=== PATIENT | female | born 1950 | race American Indian/Alaskan Native ===

== ENCOUNTER 2017-06-07 23:05 | Inpatient (IN) | payer MEDICARE, MEDICAID ==
[2017-06-07 23:06] VITALS: BMI 30.4
[2017-06-08] MEDS ORDERED: Nitroglycerin 2% Ointment Foilpak UD TOP STA (01:15)
[2017-06-08 01:19] LABS: BASO % 0.7 % (0.0-2.0); EOS # 0.2 K/uL (0.0-0.7); EOS % 2.8 % (0.0-4.0); HEMOGLOBIN 10.8 g/dL (12.0-16.0); LYMPH # 1.2 K/uL (1.0-4.3); MEAN CELL VOLUME 81.1 fl (81.0-99.0); MEAN CORPUSCULAR HEMOGLOBIN 25.9 pg (27.0-31.0); MEAN CORPUSCULAR HGB CONC 31.9 g/dL (33.0-37.0); MEAN PLATELET VOLUME 9.4 fl (7.2-11.7); MONO # 0.6 K/uL (0.0-0.8); MONO % 8.6 % (0.0-10.0); NEUT # 4.7 K/uL (1.8-7.0); NEUT % 69.9 % (50.0-75.0); NRBC % 0.1 % (0.0-0.0); RBC 4.17 Mil/uL (3.80-5.20); RED CELL DISTRIBUTION WIDTH 19.2 % (11.5-14.5); WHITE BLOOD COUNT 6.7 K/uL (4.8-10.8)
[2017-06-08] MEDS ORDERED: Nitroglycerin 2% Ointment Foilpak UD TOP ONE (01:29)
[2017-06-08 01:54] LABS: ALB/GLOB RATIO 1.1 (1.0-2.1); ALBUMIN 4.4 g/dL (3.5-5.0); ALT/SGPT 12 U/L (9-52); AST/SGOT 53 U/L (14-36); B-TYPE NATRIURETIC PEPTIDE 280 pg/ml (0-900); BLOOD UREA NITROGEN 19 mg/dl (7-17); CALCIUM 9.2 mg/dL (8.4-10.2); GFR AFRICAN-AMERICAN > 60; GFR NON-AFRICAN AMERICAN > 60
[2017-06-08 02:20] LABS: INR 1.1 (0.9-1.2); PARTIAL THROMBOPLASTIN TIME 27.6 Seconds (25.6-37.1); PROTHROMBIN TIME 11.7 Seconds (9.8-13.1)
--- NOTE | 2017-06-08 02:28 | ED PDOC ---
HPI: Chest Pain Time Seen by Provider: 06/08/17 00:13 Chief Complaint (Nursing): Chest Pain Chief Complaint (Provider): cough, shortness of breath, and chest pain History Per: Patient History/Exam Limitations: no limitations Onset/Duration Of Symptoms: Days (1x) Current Symptoms Are (Timing): Still Present Associated Symptoms: denies: Nausea, Diaphoresis Additional Complaint(s): Nohemi Garcia, a 66 year old female with a past medical history of hypertension and valve heart disease presents to the ED complaining of cough, shortness of breath, and chest pain onset two hours prior to arrival. She reports of associated symptoms of cough with white phlegm and one episode of slurred speech in the afternoon. Denies of nausea, diaphoresis, shortness of breath, fever, or diarrhea. PMD: Provider TBD Past Medical History Reviewed: Historical Data, Nursing Documentation, Vital Signs Vital Signs: Last Vital Signs Temp 97.4 F L 06/08/17 05:44 Pulse 98 H 06/08/17 05:44 Resp 18 06/08/17 05:44 BP 161/83 H 06/08/17 05:44 Pulse Ox 100 06/08/17 05:44 - Medical History PMH: CAD, Cardia Arrhythmia, HTN - Family History Family History: States: Unknown Family Hx - Social History Current smoker - smoking cessation education provided: No Alcohol: None Drugs: Denies - Immunization History Hx Tetanus Toxoid Vaccination: No Hx Influenza Vaccination: No Hx Pneumococcal Vaccination: No - Home Medications Home Medications: Ambulatory Orders Medication Instructions Recorded Lisinopril [Zestril] 10 mg PO DAILY 06/08/17 Metoprolol Tartrate [Lopressor] 50 mg PO DAILY 06/08/17 Warfarin [Coumadin] 5 mg PO DAILY 06/08/17 - Allergies Allergies/Adverse Reactions: Allergies Allergy/AdvReac Type Severity Reaction Status Date / Time No Known Allergies Allergy Verified 06/08/17 02:13 Review of Systems ROS Statement: Except As Marked, All Systems Reviewed And Found Negative Constitutional: Negative for: Fever, Other (diaphoresis) Cardiovascular: Positive for: Chest Pain Respiratory: Positive for: Cough (white phelgm ). Negative for: Shortness of Breath Gastrointestinal: Negative for: Nausea, Diarrhea Neurological: Positive for: Change in Speech (one episode; resolved ) Physical Exam - Reviewed Nursing Documentation Reviewed: Yes Vital Signs Reviewed: Yes - Physical Exam Appears: Positive for: Well, Non-toxic, No Acute Distress Head Exam: Positive for: ATRAUMATIC, NORMAL INSPECTION, NORMOCEPHALIC Skin: Positive for: Normal Color, Warm, Dry Eye Exam: Positive for: EOMI, Normal appearance, PERRL ENT: Positive for: Normal ENT Inspection Neck: Positive for: Normal, Painless ROM, Supple. Negative for: Decreased ROM Cardiovascular/Chest: Positive for: Regular Rate, Rhythm, Other (click) Respiratory: Positive for: Rales (bilateral diffuse) Gastrointestinal/Abdominal: Positive for: Normal Exam, Bowel Sounds, Soft. Negative for: Tenderness Back: Positive for: Normal Inspection. Negative for: L CVA Tenderness, R CVA Tenderness Extremity: Positive for: Normal ROM. Negative for: Tenderness, Pedal Edema, Deformity Neurologic/Psych: Positive for: Alert, Oriented (x3) - Laboratory Results Result Diagrams: 06/08/17 00:35 06/08/17 02:24 - ECG O2 Sat by Pulse Oximetry: 97 (RA) Pulse Ox Interpretation: Normal Medical Decision Making Medical Decision Making: Time: 00:19 Initial Impression: 66 y/o female with heart disease Initial Plan: --EKG --B-type Natriuretic Peptide --CMP --Troponin I --CBC --PTT --Prothrombin Time [COAG] --Chest X-ray --Lasix 40mg --Nitroglycerin 2% --Blood Culture --Influenza A B --Reevaluation Chest X-ray presented cardiomegaly and vascular congestion. Admitted as observation patient for CHF and chest pain. Documented by Camila Santos acting as a scribe for Timothy Gross MD. All medical record entries made by the Scribe were at my direction and personally dictated by me. I have reviewed the chart and agree that the record accurately reflects my personal performance of the history, physical exam, medical decision making, and the department course for this patient. I have also personally directed, reviewed, and agree with the discharge instructions and disposition. Disposition - Clinical Impression Clinical Impression: Congestive heart failure, Chest pain - Disposition Disposition Time: 01:15 Condition: GUARDED - Pt Status Changed To: Hospital Disposition Of: Observation
--- NOTE | 2017-06-08 07:06 | CP.PCM.HP ---
History of Present Illness - History of Present Illness History of Present Illness: A 66 year old female with a past medical history of hypertension and valve heart disease was admitted due to cough, shortness of breath, and chest pain onset two hours prior to arrival to ER. She was driving at around 7:30 PM and suddenly she could not breathe. She had to park her car. She reports of associated symptoms of cough with white phlegm and one episode of slurred speech in the afternoon. Denies of nausea, diaphoresis, shortness of breath, fever, or diarrhea. Present on Admission - Present on Admission Any Indicators Present on Admission: No History of DVT/PE: No History of Uncontrolled Diabetes: No Urinary Catheter: No Decubitus Ulcer Present: No Review of Systems - Constitutional Constitutional: absent: Anorexia, Chills - Cardiovascular Cardiovascular: Chest Pain - Respiratory Respiratory: Cough - Neurological Neurological: Abnormal Speech (one episode, resolved soon) Past Patient History - Past Medical History & Family History Past Medical History?: Yes - Past Social History Alcohol: None Drugs: Denies - CARDIAC Hx Cardia Arrhythmia: Yes Hx Hypertension: Yes - PULMONARY Hx Respiratory Disorders: No - NEUROLOGICAL Hx Neurological Disorder: No - HEENT Hx HEENT Problems: No - RENAL Hx Chronic Kidney Disease: No - ENDOCRINE/METABOLIC Hx Endocrine Disorders: No - HEMATOLOGICAL/ONCOLOGICAL Hx Blood Disorders: No Hx AIDS: No Hx Human Immunodeficiency Virus (HIV): No - INTEGUMENTARY Hx Dermatological Problems: No - MUSCULOSKELETAL/RHEUMATOLOGICAL Hx Musculoskeletal Disorders: No Hx Falls: No - GASTROINTESTINAL Hx Gastrointestinal Disorders: No - GENITOURINARY/GYNECOLOGICAL Hx Genitourinary Disorders: No - PSYCHIATRIC Hx Psychophysiologic Disorder: No Hx Substance Use: No - SURGICAL HISTORY Hx Surgeries: Yes Hx Open Heart Surgery: Yes - ANESTHESIA Hx Anesthesia: Yes Hx Anesthesia Reactions: No Hx Malignant Hyperthermia: No Has any member of the family had a problem w/ anesthesia?: No Meds Allergies/Adverse Reactions: Allergies Allergy/AdvReac Type Severity Reaction Status Date / Time No Known Allergies Allergy Verified 06/08/17 02:13 Physical Exam - Constitutional Appears: No Acute Distress - Neck Exam Neck exam: Positive for: Full Rom - Respiratory Exam Respiratory Exam: Rales (diffuse), NORMAL BREATHING PATTERN - Cardiovascular Exam Cardiovascular Exam: REGULAR RHYTHM. absent: Systolic Murmur - GI/Abdominal Exam GI & Abdominal Exam: Normal Bowel Sounds, Soft. absent: Tenderness - Extremities Exam Extremities exam: Positive for: normal inspection. Negative for: calf tenderness, pedal edema Results - Vital Signs Recent Vital Signs: Last Vital Signs Temp 97.4 F L 06/08/17 05:44 Pulse 98 H 06/08/17 05:44 Resp 18 06/08/17 05:44 BP 161/83 H 06/08/17 05:44 Pulse Ox 97 06/08/17 06:55 - Labs Result Diagrams: 06/08/17 00:35 06/08/17 02:24 Labs: Laboratory Results - last 24 hr 06/08/17 06/08/17 06/08/17 00:35 00:35 00:35 WBC 6.7 RBC 4.17 Hgb 10.8 L Hct 33.8 L MCV 81.1 MCH 25.9 L MCHC 31.9 L RDW 19.2 H Plt Count 189 MPV 9.4 Neut % (Auto) 69.9 Lymph % (Auto) 18.0 L [place] % (Auto) 8.6 Eos % (Auto) 2.8 Baso % (Auto) 0.7 Neut # (Auto) 4.7 Lymph # (Auto) 1.2 [place] # (Auto) 0.6 Eos # (Auto) 0.2 Baso # (Auto) 0.0 PT INR APTT Sodium 140 Potassium 6.5 H* Chloride 106 Carbon Dioxide 23 Anion Gap 18 BUN 19 H Creatinine 0.8 Est GFR ( Amer) > 60 Est GFR (Non-Af Amer) > 60 Random Glucose 91 Calcium 9.2 Total Bilirubin 2.1 H AST 53 H ALT 12 Alkaline Phosphatase 120 Troponin I 0.0130 NT-Pro-B Natriuret Pep 280 Total Protein 8.6 H Albumin 4.4 Globulin 4.1 H Albumin/Globulin Ratio 1.1 Influenza Typ A,B (EIA) Negative for flu a/b 06/08/17 06/08/17 01:50 02:24 WBC RBC Hgb Hct MCV MCH MCHC RDW Plt Count MPV Neut % (Auto) Lymph % (Auto) [place] % (Auto) Eos % (Auto) Baso % (Auto) Neut # (Auto) Lymph # (Auto) [place] # (Auto) Eos # (Auto) Baso # (Auto) PT 11.7 INR 1.1 APTT 27.6 Sodium Potassium 4.5 Chloride Carbon Dioxide Anion Gap BUN Creatinine Est GFR ( Amer) Est GFR (Non-Af Amer) Random Glucose Calcium Total Bilirubin AST ALT Alkaline Phosphatase Troponin I NT-Pro-B Natriuret Pep Total Protein Albumin Globulin Albumin/Globulin Ratio Influenza Typ A,B (EIA) Assessment & Plan - Assessment and Plan (Free Text) Assessment: a 66 year old female who came with chest pain, SOB R/O ACS history of CHF, HTN, A-fib EKG- sinus tachy with 1st degree AV block chest X-ray - cardiomegaly. Plan: troponin cardiology consult continue iv lasix respiratory treatment DVT prophylaxis - Date & Time Date: 06/08/17 Time: 07:12
[2017-06-08 09:15] LABS: HEMOGLOBIN 10.8 g/dL (12.0-16.0); MEAN CELL VOLUME 79.6 fl (81.0-99.0); MEAN CORPUSCULAR HEMOGLOBIN 25.9 pg (27.0-31.0); MEAN CORPUSCULAR HGB CONC 32.5 g/dL (33.0-37.0); RBC 4.18 Mil/uL (3.80-5.20); WHITE BLOOD COUNT 5.9 K/uL (4.8-10.8)
--- NOTE | 2017-06-08 09:18 | RAD ---
HISTORY: chest pain COMPARISON: No prior. FINDINGS: LUNGS: The lungs are hyperinflated and there is peribronchial thickening with streaky opacities in the lungs. There is moderate pulmonary venous congestion with pulmonary redistribution. PLEURA: No significant pleural effusion identified, no pneumothorax apparent. CARDIOVASCULAR: There is moderate cardiomegaly and prominent central vasculature. Status post CABG. OSSEOUS STRUCTURES: No significant abnormalities. VISUALIZED UPPER ABDOMEN: Normal. OTHER FINDINGS: None. IMPRESSION: No active pulmonary disease. COPD. Moderate cardiomegaly and pulmonary venous congestion
[2017-06-08 09:33] LABS: ALB/GLOB RATIO 1.1 (1.0-2.1); ALBUMIN 4.1 g/dL (3.5-5.0); ALT/SGPT 30 U/L (9-52); AST/SGOT 37 U/L (14-36); BLOOD UREA NITROGEN 18 mg/dl (7-17); CALCIUM 9.6 mg/dL (8.4-10.2); GFR AFRICAN-AMERICAN > 60; GFR NON-AFRICAN AMERICAN > 60
[2017-06-08 09:54] LABS: FERRITIN 10.6 ng/Ml (11.1-264.0)
[2017-06-08 10:12] LABS: IRON 27 ug/dL (37-170)
[2017-06-08 10:21] LABS: % IRON SATURATION 7 % (20-55); TOTAL IRON BINDING CAPACITY 394 ug/dL (250-450)
[2017-06-08] MEDS: Pantoprazole 40 mg EC Tab PO SCH (17:30)
--- NOTE | 2017-06-08 18:02 | CARD ---
APPROVED REPORT EXAM: Two-dimensional and M-mode echocardiogram with Doppler and color Doppler. Other Information Quality : AverageRhythm : NSR INDICATION Chest Pain Surgery/Intervention Status/Post Mitral Valve Replacement: Mechanical Date: 2012 2D DIMENSIONS IVSd1.44 (0.7-1.1cm)LVDd5.15 (3.9-5.9cm) LVOT Diameter2.16 (1.8-2.4cm)PWd1.17 (0.7-1.1cm) IVSs1.40 (0.8-1.2cm)LVDs3.70 (2.5-4.0cm) FS (%) 28.1 %PWs1.45 (0.8-1.2cm) LVEF (%)45.0 (>50%) M-Mode DIMENSIONS Left Atrium (MM)4.56 (2.5-4.0cm)IVSd1.07 (0.7-1.1cm) Aortic Root3.46 (2.2-3.7cm)LVDd5.44 (4.0-5.6cm) Aortic Cusp Exc.2.06 (1.5-2.0cm)PWd0.92 (0.7-1.1cm) IVSs1.80 cmFS (%) 17 % LVDs4.52 (2.0-3.8cm)PWs1.03 cm Mitral Valve E/A ratio0.0 TDI E/Lateral E'0.0E/Medial E'0.0 LEFT VENTRICLE The left ventricle is normal size. There is mild concentric left ventricular hypertrophy. The systolic function is mildly impaired. Apical and septal hypokinesis Transmitral Doppler flow pattern is abnormal. RIGHT VENTRICLE The right ventricle is mildly dilated. There is normal right ventricular wall thickness. RV Systolic function is severely reduced. ATRIA The left atrium is mildly dilated. The right atrium is mildly dilated. AORTIC VALVE The aortic valve is not well visualized. No aortic regurgitation is present. There is no aortic valvular stenosis. MITRAL VALVE The prosthetic mitral valve is not well visualized due to imaging artifacts from the prosthesis. mitral valve can not be evaluated for stenosis. There is no mitral valve regurgitation noted. TRICUSPID VALVE The tricuspid valve is normal in structure. There is no tricuspid valve regurgitation noted. PULMONIC VALVE The pulmonary valve is normal in structure. There is no pulmonic valvular regurgitation. GREAT VESSELS The aortic root is normal in size. The IVC is dilated. PERICARDIAL EFFUSION There is a small loculated anterior pericardial effusion. <Conclusion> The left ventricle is normal size. There is mild concentric left ventricular hypertrophy. The systolic function is mildly impaired. Apical and septal hypokinesis The right ventricle is mildly dilated. RV Systolic function is severely reduced. The prosthetic mitral valve is not well visualized due to imaging artifacts from the prosthesis.
[2017-06-08] MEDS: Enoxaparin 80 mg Syringe SC SCH (21:01)
--- NOTE | 2017-06-08 22:53 | CARD ---
APPROVED REPORT EKG Measurement Heart [id number] NC 272P [id number] <Conclusion> Sinus tachycardia with 1st degree AV block with occasional premature ventricular complexes Otherwise normal ECG
--- NOTE | 2017-06-08 23:40 | CARD ---
APPROVED REPORT EKG Measurement Heart [id number] OR 272P [id number] <Conclusion> Sinus tachycardia with 1st degree AV block Otherwise normal ECG
[2017-06-09] MEDS ORDERED: Bisacodyl 5mg EC Tab PO ONE (03:23)
[2017-06-09] MEDS: Pantoprazole 40 mg EC Tab PO SCH (09:29)
[2017-06-09] MEDS: Enoxaparin 80 mg Syringe SC SCH ×2 (09:30→21:21)
--- NOTE | 2017-06-09 14:54 | CP.PCM.PN ---
Subjective - Date & Time of Evaluation Date of Evaluation: 06/09/17 Time of Evaluation: 14:51 - Subjective Subjective: heart rate dropped to 47 in the afternoon for a minute EKG monitoring showed complete heart block she was feeling nauseous at the same time. Still feels nauseous, but no vomiting, no headaches. Objective - Vital Signs/Intake and Output Vital Signs (last 24 hours): Temp Pulse Resp BP Pulse Ox 97.2 F L 67 18 120/68 99 06/09/17 12:18 06/09/17 12:18 06/09/17 12:18 06/09/17 12:18 06/09/17 12:18 - Medications Medications: Current Medications Acetaminophen (Tylenol 325mg Tab) 650 mg PO Q6 PRN PRN Reason: mild pain 1-3 Last Admin: 06/09/17 09:29 Dose: 650 mg Enoxaparin Sodium (Lovenox) 80 mg SC Q12 [facility] PRN Reason: Protocol Last Admin: 06/09/17 09:30 Dose: 80 mg Ferrous Sulfate (Feosol) 325 mg PO BID [facility] Last Admin: 06/09/17 09:30 Dose: 325 mg Furosemide (Lasix) 40 mg IVP DAILY [facility] Last Admin: 06/09/17 09:30 Dose: 40 mg Lisinopril (Zestril) 10 mg PO DAILY [facility] Last Admin: 06/09/17 09:30 Dose: 10 mg Metoprolol Tartrate (Lopressor) 50 mg PO DAILY [facility] Last Admin: 06/09/17 09:29 Dose: 50 mg Pantoprazole Sodium (Protonix Ec Tab) 40 mg PO DAILY [facility] Last Admin: 06/09/17 09:29 Dose: 40 mg - Labs Labs: 06/08/17 09:07 06/08/17 09:07 PT 11.7 Seconds (9.8-13.1) 06/08/17 01:50 INR 1.1 (0.9-1.2) 06/08/17 01:50 APTT 27.6 Seconds (25.6-37.1) 06/08/17 01:50 - Constitutional Appears: No Acute Distress - Neck Exam Neck Exam: Full ROM - Respiratory Exam Respiratory Exam: Clear to Ausculation Bilateral. absent: Wheezes - Cardiovascular Exam Cardiovascular Exam: REGULAR RHYTHM. absent: Murmur - GI/Abdominal Exam GI & Abdominal Exam: Soft, Normal Bowel Sounds. 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
[2017-06-10] MEDS: Pantoprazole 40 mg EC Tab PO SCH (09:35)
[2017-06-10] MEDS: Enoxaparin 80 mg Syringe SC SCH ×2 (09:35→20:44)
[2017-06-10 11:16] LABS: BASO # 0.1 K/uL (0.0-0.2); BASO % 1.2 % (0.0-2.0); EOS # 0.2 K/uL (0.0-0.7); EOS % 4.1 % (0.0-4.0); HEMOGLOBIN 10.9 g/dL (12.0-16.0); LYMPH % 18.8 % (20.0-40.0); MEAN CELL VOLUME 80.8 fl (81.0-99.0); MEAN CORPUSCULAR HGB CONC 32.2 g/dL (33.0-37.0); MEAN PLATELET VOLUME 8.8 fl (7.2-11.7); MONO # 0.6 K/uL (0.0-0.8); MONO % 11.3 % (0.0-10.0); NEUT # 3.4 K/uL (1.8-7.0); NEUT % 64.6 % (50.0-75.0); NRBC % 0.1 % (0.0-0.0); RBC 4.19 Mil/uL (3.80-5.20); RED CELL DISTRIBUTION WIDTH 19.1 % (11.5-14.5); WHITE BLOOD COUNT 5.3 K/uL (4.8-10.8)
[2017-06-10 11:33] LABS: CALCIUM 9.3 mg/dL (8.4-10.2)
--- NOTE | 2017-06-10 12:49 | CP.PCM.PN ---
Subjective - Date & Time of Evaluation Date of Evaluation: 06/10/17 Time of Evaluation: 12:46 - Subjective Subjective: a little dizzy hallucination Objective - Vital Signs/Intake and Output Vital Signs (last 24 hours): Temp Pulse Resp BP Pulse Ox 98.1 F 93 H 18 103/65 96 06/10/17 08:36 06/10/17 09:36 06/10/17 08:36 06/10/17 09:36 06/10/17 08:36 - Medications Medications: Current Medications Acetaminophen (Tylenol 325mg Tab) 650 mg PO Q6 PRN PRN Reason: mild pain 1-3 Last Admin: 06/10/17 04:29 Dose: 650 mg Albuterol/Ipratropium (Duoneb 3 Mg/0.5 Mg (3 Ml) Ud) 3 ml INH RQ6 DEL Enoxaparin Sodium (Lovenox) 80 mg SC Q12 [facility] PRN Reason: Protocol Last Admin: 06/10/17 09:35 Dose: 80 mg Ferrous Sulfate (Feosol) 325 mg PO BID [facility] Last Admin: 06/10/17 09:35 Dose: 325 mg Furosemide (Lasix) 40 mg IVP DAILY [facility] Last Admin: 06/10/17 09:35 Dose: 40 mg Lisinopril (Zestril) 10 mg PO DAILY [facility] Last Admin: 06/10/17 09:36 Dose: 10 mg Pantoprazole Sodium (Protonix Ec Tab) 40 mg PO DAILY [facility] Last Admin: 06/10/17 09:35 Dose: 40 mg - Labs Labs: 06/10/17 11:10 06/10/17 11:10 PT 11.7 Seconds (9.8-13.1) 06/08/17 01:50 INR 1.1 (0.9-1.2) 06/08/17 01:50 APTT 27.6 Seconds (25.6-37.1) 06/08/17 01:50 - Constitutional Appears: No Acute Distress - Respiratory Exam Respiratory Exam: Wheezes - Cardiovascular Exam Cardiovascular Exam: REGULAR RHYTHM. absent: Murmur - Extremities Exam Extremities Exam: absent: Pedal Edema - Neurological Exam Neurological Exam: Alert, Awake Assessment and Plan - Assessment and Plan (Free Text) Assessment: CHF history of valvular replacement asthma Plan: continue iv lasix cardiology consult pending start coumadin respiratory treatment psych consult
[2017-06-10 13:44] LABS: INR 1.1 (0.9-1.2); PROTHROMBIN TIME 12.1 Seconds (9.8-13.1)
[2017-06-10] MEDS: Albuterol-Ipratrop 3 mg / 0.5 (3 ml) UD INH SCH ×2 (14:49→19:25)
[2017-06-10] MEDS ORDERED: Albuterol-Ipratrop 3 mg / 0.5 (3 ml) UD INH PRN (16:59)
[2017-06-11] MEDS: Albuterol-Ipratrop 3 mg / 0.5 (3 ml) UD INH SCH ×4 (01:45→19:50)
[2017-06-11 05:48] LABS: INR 1.1 (0.9-1.2); PROTHROMBIN TIME 12.2 Seconds (9.8-13.1)
--- NOTE | 2017-06-11 07:50 | CP.PCM.CON ---
History of Present Illness - History of Present Illness History of Present Illness: Consultation for evaluation of CP/SOB HPI: 66 year old AAF with hx of redo MVR with prosthetic mitral valve who stopped taking her AC presents with vague complaints of having chest pains and paresthesia's. Patient has been a poor historian and stopped taking her cardiac medications on her own as she felt that she no longer needed them. Review of Systems - Review of Systems Systems not reviewed;Unavailable: Acuity of Condition All systems: reviewed and no additional remarkable complaints except - Constitutional Constitutional: As Per HPI - EENT Eyes: As Per HPI Ears: As Per HPI - Breasts Breasts: As Per HPI - Cardiovascular Cardiovascular: As Per HPI - Respiratory Respiratory: As Per HPI - Gastrointestinal Gastrointestinal: As Per HPI - Genitourinary Genitourinary: As Per HPI - Reproductive: Female Reproductive:Female: As Per HPI - Menstruation Menstruation: As Per HPI - Musculoskeletal Musculoskeletal: As Per HPI - Integumentary Integumentary: As Per HPI - Neurological Neurological: As Per HPI - Psychiatric Psychiatric: As Per HPI - Endocrine Endocrine: As Per HPI - Hematologic/Lymphatic Hematologic: As Per HPI Past Patient History - Past Medical History & Family History Past Medical History?: Yes - Past Social History Alcohol: None Drugs: Denies - CARDIAC Hx Cardia Arrhythmia: Yes Hx Hypertension: Yes - PULMONARY Hx Respiratory Disorders: No - NEUROLOGICAL Hx Neurological Disorder: No - HEENT Hx HEENT Problems: No - RENAL Hx Chronic Kidney Disease: No - ENDOCRINE/METABOLIC Hx Endocrine Disorders: No - HEMATOLOGICAL/ONCOLOGICAL Hx Blood Disorders: No Hx AIDS: No Hx Human Immunodeficiency Virus (HIV): No - INTEGUMENTARY Hx Dermatological Problems: No - MUSCULOSKELETAL/RHEUMATOLOGICAL Hx Musculoskeletal Disorders: No Hx Falls: No - GASTROINTESTINAL Hx Gastrointestinal Disorders: No - GENITOURINARY/GYNECOLOGICAL Hx Genitourinary Disorders: No - PSYCHIATRIC Hx Psychophysiologic Disorder: No Hx Substance Use: No - SURGICAL HISTORY Hx Surgeries: Yes Hx Open Heart Surgery: Yes - ANESTHESIA Hx Anesthesia: Yes Hx Anesthesia Reactions: No Hx Malignant Hyperthermia: No Has any member of the family had a problem w/ anesthesia?: No Meds Allergies/Adverse Reactions: Allergies Allergy/AdvReac Type Severity Reaction Status Date / Time No Known Allergies Allergy Verified 06/08/17 02:13 - Medications Medications: Current Medications Acetaminophen (Tylenol 325mg Tab) 650 mg PO Q6 PRN PRN Reason: mild pain 1-3 Last Admin: 06/10/17 04:29 Dose: 650 mg Albuterol/Ipratropium (Duoneb 3 Mg/0.5 Mg (3 Ml) Ud) 3 ml INH RQ6 [facility] Last Admin: 06/11/17 01:45 Dose: 3 ml Albuterol/Ipratropium (Duoneb 3 Mg/0.5 Mg (3 Ml) Ud) 3 ml INH RQ6 PRN PRN Reason: Shortness of Breath Enoxaparin Sodium (Lovenox) 80 mg SC Q12 [facility] PRN Reason: Protocol Last Admin: 06/10/17 20:44 Dose: 80 mg Ferrous Sulfate (Feosol) 325 mg PO BID [facility] Last Admin: 06/10/17 16:59 Dose: 325 mg Furosemide (Lasix) 40 mg IVP DAILY [facility] Last Admin: 06/10/17 09:35 Dose: 40 mg Lisinopril (Zestril) 10 mg PO DAILY [facility] Last Admin: 06/10/17 09:36 Dose: 10 mg Pantoprazole Sodium (Protonix Ec Tab) 40 mg PO DAILY [facility] Last Admin: 06/10/17 09:35 Dose: 40 mg Physical Exam - Constitutional Appears: Well - Head Exam Head Exam: ATRAUMATIC, NORMAL INSPECTION, NORMOCEPHALIC - Eye Exam Eye Exam: EOMI, Normal appearance, PERRL Pupil Exam: NORMAL ACCOMODATION, PERRL - ENT Exam ENT Exam: Mucous Membranes Moist, Normal Exam - Neck Exam Neck exam: Positive for: Normal Inspection - Respiratory Exam Respiratory Exam: Clear to Auscultation Bilateral, NORMAL BREATHING PATTERN - Cardiovascular Exam Cardiovascular Exam: REGULAR RHYTHM, RRR, +S1, +S2, Systolic Murmur - GI/Abdominal Exam GI & Abdominal Exam: Normal Bowel Sounds, Soft. absent: Tenderness - Extremities Exam Extremities exam: Positive for: normal inspection - Back Exam Back exam: NORMAL INSPECTION - Neurological Exam Neurological exam: Alert, CN II-XII Intact, Normal Gait, Oriented x3, Reflexes Normal - Psychiatric Exam Psychiatric exam: Normal Affect, Normal Mood - Skin Skin Exam: Dry, Intact, Normal Color, Warm Results - Vital Signs Recent Vital Signs: Last Vital Signs Temp 98.3 F 06/11/17 04:55 Pulse 98 H 06/11/17 04:55 Resp 18 06/11/17 04:55 BP 99/55 L 06/11/17 04:55 Pulse Ox 100 06/11/17 04:55 - Labs Result Diagrams: 06/10/17 11:10 06/10/17 11:10 Labs: Laboratory Results - last 24 hr 06/10/17 06/10/17 06/10/17 11:10 11:10 12:50 WBC 5.3 RBC 4.19 Hgb 10.9 L Hct 33.8 L MCV 80.8 L MCH 26.0 L MCHC 32.2 L RDW 19.1 H Plt Count 237 MPV 8.8 Neut % (Auto) 64.6 Lymph % (Auto) 18.8 L [place] % (Auto) 11.3 H Eos % (Auto) 4.1 H Baso % (Auto) 1.2 Neut # (Auto) 3.4 Lymph # (Auto) 1.0 [place] # (Auto) 0.6 Eos # (Auto) 0.2 Baso # (Auto) 0.1 PT 12.1 INR 1.1 Sodium 143 Potassium 3.7 Chloride 103 Carbon Dioxide 26 Anion Gap 18 BUN 20 H Creatinine 1.2 Est GFR ( Amer) 54 Est GFR (Non-Af Amer) 45 Random Glucose 134 H Calcium 9.3 TSH 3rd Generation 0.44 L 06/11/17 05:10 WBC RBC Hgb Hct MCV MCH MCHC RDW Plt Count MPV Neut % (Auto) Lymph % (Auto) [place] % (Auto) Eos % (Auto) Baso % (Auto) Neut # (Auto) Lymph # (Auto) [place] # (Auto) Eos # (Auto) Baso # (Auto) PT 12.2 INR 1.1 Sodium Potassium Chloride Carbon Dioxide Anion Gap BUN Creatinine Est GFR ( Amer) Est GFR (Non-Af Amer) Random Glucose Calcium TSH 3rd Generation Assessment & Plan (1) Chest pain Assessment and Plan: atypical echo EDGAR Status: Acute (2) Congestive heart failure Assessment and Plan: lasix BB arb Status: Acute (3) Cardiac arrhythmia Assessment and Plan: telemetry Status: Acute (4) Dyspnea Status: Acute
--- NOTE | 2017-06-11 09:34 | CP.PCM.PCO ---
Assessment & Plan - Assessment and Plan (Free Text) Assessment: Echo results discussed with and patient patient has agreed to SHAWNA NPO past midnight- SHAWNA w/ in am
[2017-06-11] MEDS: Enoxaparin 80 mg Syringe SC SCH ×2 (10:28→21:01)
[2017-06-11] MEDS: Pantoprazole 40 mg EC Tab PO SCH (10:29)
--- NOTE | 2017-06-11 11:37 | PQF GENQUE ---
Dr. Amos, 2 queries: Please specify the type and acuity of heart failure in your progress notes: 1. TYPE: Combined systolic and diastolic Heart failure with reduced ejection fraction and diastolic dysfunction Diastolic HFpEF Systolic HFrEF Left heart failure Right heart failure Right heart failure due to left heart failure High Output failure End stage heart failure Other (please specify) Clinically unable to determine Unknown 2. ACUITY: Acute Chronic Acute on chronic Other (please specify) Clinically unable to determine Unknown 06/08/17 Echo: <Conclusion> The left ventricle is normal size. There is mild concentric left ventricular hypertrophy. The systolic function is mildly impaired. Apical and septal hypokinesis ProBNP:280 CXR: Impression .: No active pulmonary disease. COPD. Moderate cardiomegaly and pulmonary venous congestion Admission order: Admitting dx.: CHF, Chest Pain ER: Clinical Impression : CHF ,Chest pain H and P: who came with chest pain, SOB R/O ACS history of CHF, HTN, A-fib EKG- sinus tachy with 1st degree AV block chest X-ray - cardiomegaly. 06/08 Cardio consult: hx of redo MVR with prosthetic mitral valve who stopped taking her AC presents with vague complaints of having chest pains and paresthesia's. Patient has been a poor historian and stopped taking her cardiac medications on her own as she felt that she no longer needed them. Assessment :Plan : (1) Chest pain Assessment and Plan: atypical echo EDGAR Status: Acute (2) Congestive heart failure Assessment and Plan: lasix BB arb Status: Acute (3) Cardiac arrhythmia Assessment and Plan: telemetry Status: Acute (4) Dyspnea Status: Acute order date: 06/08: coreg PO Q12, Lasix 40 mg IV stat and Daily This form is a permanent part of the medical record Clarification of your documentation is requested to better reflect the severity of illness and intensity of treatment of your patient. Indicators present [] Specify: []combined systolic and diastolic heart failure [] Specify: [] [] Specify: [] [] Specify: [] Location in the medical record that reflects the above clinical findings: [] Treatment Provided: [] PHYSICIAN'S RESPONSE Based on your medical judgment of the clinical indicators outlined above please clarify the following: [] Practitioner response [] If unable to determine, please check the box, sign and date. Present On Admission (POA) Indicator: [] Present at the time of admission [] Not present at the time of admission [] Clinically Undetermined In responding to this query, please exercise your independent professional judgment. The fact that a question is asked does not imply that any particular answer is desired or expected. Thank you for your clarification on this documentation. If you have any questions please call. * Thank you, Ciera Boyd RN ext. #[phone] MTDD
--- NOTE | 2017-06-11 11:56 | PQF GENQUE ---
Dr. Amos, 2 queries: 1. Please clarify type of asthma: Mild intermittent Mild persistent Moderate persistent Severe persistent Other (please specify) OR: Clinically unable to determine OR: Unknown 2. Please clarify acuity of asthma: Uncomplicated With exacerbation(acute) With status asthmaticus Other (please specify) OR: Clinically unable to determine OR: Unknown 2/2: Attending progress note; Respiratory Exam: Wheezes dxs. include Asthma albuterol INH RQ6->PRN This form is a permanent part of the medical record Clarification of your documentation is requested to better reflect the severity of illness and intensity of treatment of your patient. Indicators present [] Specify: [] [] Specify: [] [] Specify: [] [] Specify: [] Location in the medical record that reflects the above clinical findings: [] Treatment Provided: [] PHYSICIAN'S RESPONSE Based on your medical judgment of the clinical indicators outlined above please clarify the following: [] Practitioner response [] If unable to determine, please check the box, sign and date. Present On Admission (POA) Indicator: [] Present at the time of admission [] Not present at the time of admission [] Clinically Undetermined In responding to this query, please exercise your independent professional judgment. The fact that a question is asked does not imply that any particular answer is desired or expected. Thank you for your clarification on this documentation. If you have any questions please call. * Thank you, Ciera Boyd RN ext. #[phone] MTDD
--- NOTE | 2017-06-11 18:22 | CP.PCM.PN ---
Subjective - Date & Time of Evaluation Date of Evaluation: 06/11/17 Time of Evaluation: 18:20 - Subjective Subjective: mucus chest congestion Objective - Vital Signs/Intake and Output Vital Signs (last 24 hours): Temp Pulse Resp BP Pulse Ox 98.8 F 102 H 20 117/80 97 06/11/17 15:38 06/11/17 15:38 06/11/17 15:38 06/11/17 15:38 06/11/17 15:38 Intake and Output: 06/11/17 06/11/17 06:59 18:59 Intake Total 1200 1500 Output Total 0 Balance 1200 1500 - Medications Medications: Current Medications Acetaminophen (Tylenol 325mg Tab) 650 mg PO Q6 PRN PRN Reason: mild pain 1-3 Last Admin: 06/10/17 04:29 Dose: 650 mg Albuterol/Ipratropium (Duoneb 3 Mg/0.5 Mg (3 Ml) Ud) 3 ml INH RQ6 DEL Last Admin: 06/11/17 13:36 Dose: 3 ml Albuterol/Ipratropium (Duoneb 3 Mg/0.5 Mg (3 Ml) Ud) 3 ml INH RQ6 PRN PRN Reason: Shortness of Breath Carvedilol (Coreg) 3.125 mg PO Q12 [facility] Last Admin: 06/11/17 10:27 Dose: 3.125 mg Enoxaparin Sodium (Lovenox) 80 mg SC Q12 DEL PRN Reason: Protocol Last Admin: 06/11/17 10:28 Dose: 80 mg Ferrous Sulfate (Feosol) 325 mg PO BID [facility] Last Admin: 06/11/17 16:28 Dose: 325 mg Furosemide (Lasix) 40 mg IVP DAILY [facility] Last Admin: 06/11/17 10:29 Dose: 40 mg Lisinopril (Zestril) 10 mg PO DAILY [facility] Last Admin: 06/11/17 10:30 Dose: 10 mg Pantoprazole Sodium (Protonix Ec Tab) 40 mg PO DAILY [facility] Last Admin: 06/11/17 10:29 Dose: 40 mg - Labs Labs: 06/10/17 11:10 06/10/17 11:10 PT 12.2 Seconds (9.8-13.1) 06/11/17 05:10 INR 1.1 (0.9-1.2) 06/11/17 05:10 APTT 27.6 Seconds (25.6-37.1) 06/08/17 01:50 - Constitutional Appears: No Acute Distress - Respiratory Exam Respiratory Exam: Clear to Ausculation Bilateral. absent: Wheezes - Cardiovascular Exam Cardiovascular Exam: REGULAR RHYTHM. absent: Murmur - Extremities Exam Extremities Exam: Normal Inspection. absent: Pedal Edema Assessment and Plan - Assessment and Plan (Free Text) Assessment: CHF both systolic and diastolic asthma, mild intermittent bronchitis Plan: as per cardiology, SHAWNA tomorrow sputum culture
--- NOTE | 2017-06-11 21:23 | CARD ---
APPROVED REPORT EKG Measurement Heart [id number] <Conclusion> Sinus rhythm with 1st degree AV block Otherwise normal ECG
[2017-06-12] MEDS: Albuterol-Ipratrop 3 mg / 0.5 (3 ml) UD INH SCH ×5 (01:04→20:03)
[2017-06-12 05:53] LABS: T4 11.6 ug/dl (5.5-11.0)
[2017-06-12 06:06] LABS: T3 1.18 nmol/L (1.49-2.60)
[2017-06-12] MEDS: Pantoprazole 40 mg EC Tab PO SCH (09:55)
[2017-06-12] MEDS: Enoxaparin 80 mg Syringe SC SCH ×2 (10:04→21:49)
--- NOTE | 2017-06-12 13:01 | CP.PCM.CON ---
History of Present Illness - History of Present Illness History of Present Illness: pt is a 66 year old female with unclear previous psychiatric history, pt has a hx of redo MVR with prosthetic mitral valve presented to Er with complaints of having chest pains and paresthesia's. Patient has been a poor historian and stopped taking her cardiac medications on her own as she felt that she no longer needed them. on evaluating the pt she reported she stopped taking her medications because they have caused her to experience visual hallucinations, seeing spiders in her room for the past two years, asked the pt if she understands the risk of not taking her medications she reported she does not need it and there is no risk of taking it as she is substituting it with holistic medicine and going to adventism on further evaluation, pt presenting with pressured speech and grandiose delusions stating that she has been a psychiatrist before, worked in [facility] [employer] which closed already, pt observed drawing, 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, requested from pt to speak with her daughter for collateral information she declined pt during the interview presenting with a labile affect at times irritable and tearful at times when talking about the strained relation with her daughter pt presented a shypomanic and also did not have the capacity to make the decision in terms of refusing to continue on her medications , explained to her if she undestands the risk of having an embolus she notedthat she understands her body better and holistic medicine will, be enough, became very angry and irritable at end of interview stating she is offended that she has to see a psychiatrist collateral information obtained from social work lecturer Cleopatra, stated that APS has been called by a neighbour prior for the pt, she also stated that at one point police was called as pt has been to [place] was screaming and yelling for no reason as per the collateral information pt has been evcted and prior to hospitalization was living for a week in her car Past Patient History - Past Medical History & Family History Past Medical History?: Yes - Past Social History Alcohol: None Drugs: Denies - CARDIAC Hx Cardia Arrhythmia: Yes Hx Hypertension: Yes - PULMONARY Hx Respiratory Disorders: No - NEUROLOGICAL Hx Neurological Disorder: No - HEENT Hx HEENT Problems: No - RENAL Hx Chronic Kidney Disease: No - ENDOCRINE/METABOLIC Hx Endocrine Disorders: No - HEMATOLOGICAL/ONCOLOGICAL Hx Blood Disorders: No Hx AIDS: No Hx Human Immunodeficiency Virus (HIV): No - INTEGUMENTARY Hx Dermatological Problems: No - MUSCULOSKELETAL/RHEUMATOLOGICAL Hx Musculoskeletal Disorders: No Hx Falls: No - GASTROINTESTINAL Hx Gastrointestinal Disorders: No - GENITOURINARY/GYNECOLOGICAL Hx Genitourinary Disorders: No - PSYCHIATRIC Hx Psychophysiologic Disorder: No Hx Substance Use: No - SURGICAL HISTORY Hx Surgeries: Yes Hx Open Heart Surgery: Yes - ANESTHESIA Hx Anesthesia: Yes Hx Anesthesia Reactions: No Hx Malignant Hyperthermia: No Has any member of the family had a problem w/ anesthesia?: No Meds Allergies/Adverse Reactions: Allergies Allergy/AdvReac Type Severity Reaction Status Date / Time No Known Allergies Allergy Verified 06/08/17 02:13 - Medications Medications: Current Medications Acetaminophen (Tylenol 325mg Tab) 650 mg PO Q6 PRN PRN Reason: mild pain 1-3 Last Admin: 06/10/17 04:29 Dose: 650 mg Albuterol/Ipratropium (Duoneb 3 Mg/0.5 Mg (3 Ml) Ud) 3 ml INH RQ6 [facility] Last Admin: 06/12/17 08:09 Dose: 3 ml Albuterol/Ipratropium (Duoneb 3 Mg/0.5 Mg (3 Ml) Ud) 3 ml INH RQ6 PRN PRN Reason: Shortness of Breath Carvedilol (Coreg) 3.125 mg PO Q12 [facility] Last Admin: 06/12/17 09:54 Dose: 3.125 mg Diphenhydramine HCl (Benadryl) 25 mg PO Q6 PRN PRN Reason: Restlessness Enoxaparin Sodium (Lovenox) 80 mg SC Q12 [facility] PRN Reason: Protocol Last Admin: 06/12/17 10:04 Dose: 80 mg Ferrous Sulfate (Feosol) 325 mg PO BID [facility] Last Admin: 06/12/17 09:55 Dose: 325 mg Furosemide (Lasix) 40 mg IVP DAILY [facility] Last Admin: 06/12/17 09:55 Dose: 40 mg Haloperidol Lactate (Haldol) 2 mg IM Q6 PRN PRN Reason: Agitation Lisinopril (Zestril) 10 mg PO DAILY [facility] Last Admin: 06/12/17 09:56 Dose: 10 mg Lorazepam (Ativan) 1 mg IM Q6 [facility] Pantoprazole Sodium (Protonix Ec Tab) 40 mg PO DAILY [facility] Last Admin: 06/12/17 09:55 Dose: 40 mg Physical Exam - Psychiatric Exam Additional comments: pt seen sitting in bed, initially guarded and evasive , partial eye contact, speech pressured thought form circumstantial , possible grandiose delusions mood upset and angry affect labile , denied any current suicidal or homicidal ideations, reports visual hallucinations of spiders, alert awake oriented x3 Results - Vital Signs Recent Vital Signs: Last Vital Signs Temp 97.4 F L 06/12/17 08:09 Pulse 98 H 06/12/17 09:56 Resp 18 06/12/17 08:09 BP 117/73 06/12/17 09:56 Pulse Ox 98 06/12/17 08:09 - Labs Result Diagrams: 06/10/17 11:10 06/10/17 11:10 Labs: Laboratory Results - last 24 hr 06/12/17 04:20 Thyroxine (T4) 11.6 H Total T3 1.18 L TSH 3rd Generation 0.65 Assessment & Plan - Assessment and Plan (Free Text) Assessment: bipolar disorder unspecified Plan: offered pt admission to psychiatry unit for mood stabilization, pt declined pt at current mental status does not have the capacity to make the decision in reference to taking needed medications, presenting with manic mood and affect recommend screening pt for involuntary admission for further stabilization recommend haldol 2mg po q6prn for agitation ativan 1mg po q6 prn for anxiety benadryl 25mg q6 prn for eps
--- NOTE | 2017-06-12 15:08 | CP.PCM.PN ---
Subjective - Date & Time of Evaluation Date of Evaluation: 06/12/17 Time of Evaluation: 15:04 - Subjective Subjective: patient is on 1:1 watch now denies chest pain Objective - Vital Signs/Intake and Output Vital Signs (last 24 hours): Temp Pulse Resp BP Pulse Ox 97.4 F L 98 H 18 117/73 98 06/12/17 08:09 06/12/17 09:56 06/12/17 08:09 06/12/17 09:56 06/12/17 08:09 - Medications Medications: Current Medications Acetaminophen (Tylenol 325mg Tab) 650 mg PO Q6 PRN PRN Reason: mild pain 1-3 Last Admin: 06/10/17 04:29 Dose: 650 mg Albuterol/Ipratropium (Duoneb 3 Mg/0.5 Mg (3 Ml) Ud) 3 ml INH RQ6 [facility] Last Admin: 06/12/17 13:07 Dose: Not Given Albuterol/Ipratropium (Duoneb 3 Mg/0.5 Mg (3 Ml) Ud) 3 ml INH RQ6 PRN PRN Reason: Shortness of Breath Carvedilol (Coreg) 3.125 mg PO Q12 [facility] Last Admin: 06/12/17 09:54 Dose: 3.125 mg Diphenhydramine HCl (Benadryl) 25 mg PO Q6 PRN PRN Reason: Restlessness Enoxaparin Sodium (Lovenox) 80 mg SC Q12 DEL PRN Reason: Protocol Last Admin: 06/12/17 10:04 Dose: 80 mg Ferrous Sulfate (Feosol) 325 mg PO BID [facility] Last Admin: 06/12/17 09:55 Dose: 325 mg Furosemide (Lasix) 40 mg IVP DAILY [facility] Last Admin: 06/12/17 09:55 Dose: 40 mg Haloperidol Lactate (Haldol) 2 mg IM Q6 PRN PRN Reason: Agitation Lisinopril (Zestril) 10 mg PO DAILY [facility] Last Admin: 06/12/17 09:56 Dose: 10 mg Lorazepam (Ativan) 1 mg IM Q6 [facility] Pantoprazole Sodium (Protonix Ec Tab) 40 mg PO DAILY [facility] Last Admin: 06/12/17 09:55 Dose: 40 mg - Labs Labs: 06/10/17 11:10 06/10/17 11:10 PT 12.2 Seconds (9.8-13.1) 06/11/17 05:10 INR 1.1 (0.9-1.2) 06/11/17 05:10 APTT 27.6 Seconds (25.6-37.1) 06/08/17 01:50 - Constitutional Appears: No Acute Distress - Respiratory Exam Respiratory Exam: Clear to Ausculation Bilateral. absent: Wheezes - Cardiovascular Exam Cardiovascular Exam: REGULAR RHYTHM. absent: Murmur - Extremities Exam Extremities Exam: absent: Pedal Edema Assessment and Plan - Assessment and Plan (Free Text) Assessment: history of valvular replacement with a mechanical valve CHF waiting for a SHAWNA it was postponed to tomorrow morning. she is upset about psychiatrist evaluation. She refused all the examination and all the tests here. as per psychiatry she needs a screening for involuntary admission. Plan: as per cardiology, SHAWNA follow up with psychiatry will transfer the service to Hospitalist department as I am going out of state today. talked to a psychiatrist.
--- NOTE | 2017-06-12 17:15 | CP.PCM.CON ---
History of Present Illness - History of Present Illness History of Present Illness: consult requested/asked to revaluate pt as she is requesting to leave hospital against medical advise as per nursing staff calling police and calling administration with complaints that she cannot leave the hospital against medical advise I attempted to revaluate the patient however she refused pt reported she is angry as she has not requested a psychiatric evaluation , it is to be noted that on my first interview with the patient I introduced myself as the psychiatrist and she has agreed to go ahead with the interview, was voulantarily giving information As mentioned at the current mental status patient is irritable angry said she would only talk to me if I allow her to leave the hospital now As noted in previous reports that pt has stopped taking her blood thinner and all her other medications , pt was not able to appreciate the possible risk and medical consequences of stopping her medications, pt continues to refuse to have the needed tests including SHAWNA which was postponed till tomorrow, collateral information from social media campaign manager on the unit indicated previous involvement of adult protective services with the patient It is my clinical opinion that the pt at the current mental status does not have the capacity to make the decision in reference to taking her medications, weighing the risks versus benefits and putting herself in possible medical risk also to be noted that as per collateral information from social media campaign manager frandy pt has been living in her car after being evicted from her home It is my clinical opinion that pt at current mental status needs to be screened for involuntary admission for further stabilzation as pt presenting to with labile mood and affect and in the context of initial presentation with visual halluciantions witho possible medical cause that needs to be worked out Please if in disagreement with above I would recommend a second psychiatric consultation opinion Past Patient History - Past Medical History & Family History Past Medical History?: Yes - Past Social History Alcohol: None Drugs: Denies - CARDIAC Hx Cardia Arrhythmia: Yes Hx Hypertension: Yes - PULMONARY Hx Respiratory Disorders: No - NEUROLOGICAL Hx Neurological Disorder: No - HEENT Hx HEENT Problems: No - RENAL Hx Chronic Kidney Disease: No - ENDOCRINE/METABOLIC Hx Endocrine Disorders: No - HEMATOLOGICAL/ONCOLOGICAL Hx Blood Disorders: No Hx AIDS: No Hx Human Immunodeficiency Virus (HIV): No - INTEGUMENTARY Hx Dermatological Problems: No - MUSCULOSKELETAL/RHEUMATOLOGICAL Hx Musculoskeletal Disorders: No Hx Falls: No - GASTROINTESTINAL Hx Gastrointestinal Disorders: No - GENITOURINARY/GYNECOLOGICAL Hx Genitourinary Disorders: No - PSYCHIATRIC Hx Psychophysiologic Disorder: No Hx Substance Use: No - SURGICAL HISTORY Hx Surgeries: Yes Hx Open Heart Surgery: Yes - ANESTHESIA Hx Anesthesia: Yes Hx Anesthesia Reactions: No Hx Malignant Hyperthermia: No Has any member of the family had a problem w/ anesthesia?: No Meds Allergies/Adverse Reactions: Allergies Allergy/AdvReac Type Severity Reaction Status Date / Time No Known Allergies Allergy Verified 06/08/17 02:13 - Medications Medications: Current Medications Acetaminophen (Tylenol 325mg Tab) 650 mg PO Q6 PRN PRN Reason: mild pain 1-3 Last Admin: 06/10/17 04:29 Dose: 650 mg Albuterol/Ipratropium (Duoneb 3 Mg/0.5 Mg (3 Ml) Ud) 3 ml INH RQ6 [facility] Last Admin: 06/12/17 13:07 Dose: Not Given Albuterol/Ipratropium (Duoneb 3 Mg/0.5 Mg (3 Ml) Ud) 3 ml INH RQ6 PRN PRN Reason: Shortness of Breath Carvedilol (Coreg) 3.125 mg PO Q12 [facility] Last Admin: 06/12/17 09:54 Dose: 3.125 mg Diphenhydramine HCl (Benadryl) 25 mg PO Q6 PRN PRN Reason: Restlessness Enoxaparin Sodium (Lovenox) 80 mg SC Q12 [facility] PRN Reason: Protocol Last Admin: 06/12/17 10:04 Dose: 80 mg Ferrous Sulfate (Feosol) 325 mg PO BID [facility] Last Admin: 06/12/17 09:55 Dose: 325 mg Furosemide (Lasix) 40 mg IVP DAILY [facility] Last Admin: 06/12/17 09:55 Dose: 40 mg Haloperidol Lactate (Haldol) 2 mg IM Q6 PRN PRN Reason: Agitation Lisinopril (Zestril) 10 mg PO DAILY [facility] Last Admin: 06/12/17 09:56 Dose: 10 mg Lorazepam (Ativan) 1 mg IM Q6 [facility] Pantoprazole Sodium (Protonix Ec Tab) 40 mg PO DAILY [facility] Last Admin: 06/12/17 09:55 Dose: 40 mg Results - Vital Signs Recent Vital Signs: Last Vital Signs Temp 97.4 F L 06/12/17 08:09 Pulse 98 H 06/12/17 09:56 Resp 18 06/12/17 08:09 BP 117/73 06/12/17 09:56 Pulse Ox 98 06/12/17 08:09 - Labs Result Diagrams: 06/10/17 11:10 06/10/17 11:10 Labs: Laboratory Results - last 24 hr 06/12/17 04:20 Thyroxine (T4) 11.6 H Total T3 1.18 L TSH 3rd Generation 0.65
--- NOTE | 2017-06-12 18:13 | CP.PCM.PN ---
Subjective - Date & Time of Evaluation Date of Evaluation: 06/12/17 Time of Evaluation: 17:30 - Subjective Subjective: Hospitalist service has assumed care of this patient at the request of Dr. Amos. The patient gives limited history to me. However she is verbally refusing telemetry, vitals, and any medications. She has also verbally told me that she is refusing transesophageal echocardiogram that was to be performed by Dr. Street tomorrow morning. Therefore, the patient is medically acceptable for transfer to [facility] for [facility] treatment if deemed as she is refusing all medical treatment in the hospital despite verbalizing the risks of worsening medical condition by refusing medical treatment. Objective - Vital Signs/Intake and Output Vital Signs (last 24 hours): Temp Pulse Resp BP Pulse Ox 97.4 F L 98 H 18 117/73 98 06/12/17 08:09 06/12/17 09:56 06/12/17 08:09 06/12/17 09:56 06/12/17 08:09 - Medications Medications: Current Medications Acetaminophen (Tylenol 325mg Tab) 650 mg PO Q6 PRN PRN Reason: mild pain 1-3 Last Admin: 06/10/17 04:29 Dose: 650 mg Albuterol/Ipratropium (Duoneb 3 Mg/0.5 Mg (3 Ml) Ud) 3 ml INH RQ6 [facility] Last Admin: 06/12/17 13:07 Dose: Not Given Albuterol/Ipratropium (Duoneb 3 Mg/0.5 Mg (3 Ml) Ud) 3 ml INH RQ6 PRN PRN Reason: Shortness of Breath Carvedilol (Coreg) 3.125 mg PO Q12 [facility] Last Admin: 06/12/17 09:54 Dose: 3.125 mg Diphenhydramine HCl (Benadryl) 25 mg PO Q6 PRN PRN Reason: Restlessness Enoxaparin Sodium (Lovenox) 80 mg SC Q12 DEL PRN Reason: Protocol Last Admin: 06/12/17 10:04 Dose: 80 mg Ferrous Sulfate (Feosol) 325 mg PO BID [facility] Last Admin: 06/12/17 09:55 Dose: 325 mg Furosemide (Lasix) 40 mg IVP DAILY [facility] Last Admin: 06/12/17 09:55 Dose: 40 mg Haloperidol Lactate (Haldol) 2 mg IM Q6 PRN PRN Reason: Agitation Lisinopril (Zestril) 10 mg PO DAILY [facility] Last Admin: 06/12/17 09:56 Dose: 10 mg Lorazepam (Ativan) 1 mg IM Q6 [facility] Pantoprazole Sodium (Protonix Ec Tab) 40 mg PO DAILY [facility] Last Admin: 06/12/17 09:55 Dose: 40 mg - Labs Labs: 06/10/17 11:10 06/10/17 11:10 PT 12.2 Seconds (9.8-13.1) 06/11/17 05:10 INR 1.1 (0.9-1.2) 06/11/17 05:10 APTT 27.6 Seconds (25.6-37.1) 06/08/17 01:50
--- NOTE | 2017-06-13 00:07 | CP.PCM.PN ---
Subjective - Date & Time of Evaluation Date of Evaluation: 06/10/17 Time of Evaluation: 21:40 - Subjective Subjective: pt c/o intermittent bouts of cp/palpitations Objective - Vital Signs/Intake and Output Vital Signs (last 24 hours): Temp Pulse Resp BP Pulse Ox 97.4 F L 101 H 18 136/89 98 06/12/17 08:09 06/12/17 21:46 06/12/17 08:09 06/12/17 21:46 06/12/17 08:09 - Medications Medications: Current Medications Acetaminophen (Tylenol 325mg Tab) 650 mg PO Q6 PRN PRN Reason: mild pain 1-3 Last Admin: 06/10/17 04:29 Dose: 650 mg Albuterol/Ipratropium (Duoneb 3 Mg/0.5 Mg (3 Ml) Ud) 3 ml INH RQ6 DEL Last Admin: 06/12/17 20:03 Dose: 3 ml Albuterol/Ipratropium (Duoneb 3 Mg/0.5 Mg (3 Ml) Ud) 3 ml INH RQ6 PRN PRN Reason: Shortness of Breath Carvedilol (Coreg) 3.125 mg PO Q12 [facility] Last Admin: 06/12/17 21:46 Dose: 3.125 mg Diphenhydramine HCl (Benadryl) 25 mg PO Q6 PRN PRN Reason: Restlessness Enoxaparin Sodium (Lovenox) 80 mg SC Q12 DEL PRN Reason: Protocol Last Admin: 06/12/17 21:49 Dose: Not Given Ferrous Sulfate (Feosol) 325 mg PO BID [facility] Last Admin: 06/12/17 20:30 Dose: Not Given Furosemide (Lasix) 40 mg IVP DAILY [facility] Last Admin: 06/12/17 09:55 Dose: 40 mg Haloperidol Lactate (Haldol) 2 mg IM Q6 PRN PRN Reason: Agitation Lisinopril (Zestril) 10 mg PO DAILY [facility] Last Admin: 06/12/17 09:56 Dose: 10 mg Lorazepam (Ativan) 1 mg IM Q6 [facility] Last Admin: 06/12/17 21:49 Dose: Not Given Pantoprazole Sodium (Protonix Ec Tab) 40 mg PO DAILY [facility] Last Admin: 06/12/17 09:55 Dose: 40 mg - Labs Labs: 06/10/17 11:10 06/10/17 11:10 PT 12.2 Seconds (9.8-13.1) 06/11/17 05:10 INR 1.1 (0.9-1.2) 06/11/17 05:10 APTT 27.6 Seconds (25.6-37.1) 06/08/17 01:50 - Constitutional Appears: Well - Head Exam Head Exam: ATRAUMATIC, NORMAL INSPECTION, NORMOCEPHALIC - Eye Exam Eye Exam: EOMI, Normal appearance, PERRL Pupil Exam: NORMAL ACCOMODATION, PERRL - ENT Exam ENT Exam: Mucous Membranes Moist, Normal Exam - Neck Exam Neck Exam: Full ROM, Normal Inspection. absent: Lymphadenopathy - Respiratory Exam Respiratory Exam: Clear to Ausculation Bilateral, NORMAL BREATHING PATTERN - Cardiovascular Exam Cardiovascular Exam: REGULAR RHYTHM, +S1, +S2, Murmur - GI/Abdominal Exam GI & Abdominal Exam: Soft, Normal Bowel Sounds. absent: Tenderness - Extremities Exam Extremities Exam: Full ROM, Normal Capillary Refill, Normal Inspection. absent : Joint Swelling, Pedal Edema - Back Exam Back Exam: NORMAL INSPECTION - Neurological Exam Neurological Exam: Alert, Awake, CN II-XII Intact, Normal Gait, Oriented x3 - Psychiatric Exam Psychiatric exam: Normal Affect, Normal Mood - Skin Skin Exam: Dry, Intact, Normal Color, Warm Assessment and Plan (1) Mitral valve replaced Assessment & Plan: plan for SHAWNA echo reviewed Status: Acute (2) Chest pain Status: Acute (3) Congestive heart failure Assessment & Plan: cont with coreg, lasix, lisinopril Status: Acute (4) Cardiac arrhythmia Status: Acute (5) Dyspnea Status: Acute
--- NOTE | 2017-06-13 00:11 | CP.PCM.PN ---
Subjective - Date & Time of Evaluation Date of Evaluation: 06/11/17 Time of Evaluation: 20:40 - Subjective Subjective: cp intermittent acs ruled out Objective - Vital Signs/Intake and Output Vital Signs (last 24 hours): Temp Pulse Resp BP Pulse Ox 97.4 F L 101 H 18 136/89 98 06/12/17 08:09 06/12/17 21:46 06/12/17 08:09 06/12/17 21:46 06/12/17 08:09 - Medications Medications: Current Medications Acetaminophen (Tylenol 325mg Tab) 650 mg PO Q6 PRN PRN Reason: mild pain 1-3 Last Admin: 06/10/17 04:29 Dose: 650 mg Albuterol/Ipratropium (Duoneb 3 Mg/0.5 Mg (3 Ml) Ud) 3 ml INH RQ6 [facility] Last Admin: 06/12/17 20:03 Dose: 3 ml Albuterol/Ipratropium (Duoneb 3 Mg/0.5 Mg (3 Ml) Ud) 3 ml INH RQ6 PRN PRN Reason: Shortness of Breath Carvedilol (Coreg) 3.125 mg PO Q12 [facility] Last Admin: 06/12/17 21:46 Dose: 3.125 mg Diphenhydramine HCl (Benadryl) 25 mg PO Q6 PRN PRN Reason: Restlessness Enoxaparin Sodium (Lovenox) 80 mg SC Q12 DEL PRN Reason: Protocol Last Admin: 06/12/17 21:49 Dose: Not Given Ferrous Sulfate (Feosol) 325 mg PO BID [facility] Last Admin: 06/12/17 20:30 Dose: Not Given Furosemide (Lasix) 40 mg IVP DAILY [facility] Last Admin: 06/12/17 09:55 Dose: 40 mg Haloperidol Lactate (Haldol) 2 mg IM Q6 PRN PRN Reason: Agitation Lisinopril (Zestril) 10 mg PO DAILY [facility] Last Admin: 06/12/17 09:56 Dose: 10 mg Lorazepam (Ativan) 1 mg IM Q6 [facility] Last Admin: 06/12/17 21:49 Dose: Not Given Pantoprazole Sodium (Protonix Ec Tab) 40 mg PO DAILY [facility] Last Admin: 06/12/17 09:55 Dose: 40 mg - Labs Labs: 06/10/17 11:10 06/10/17 11:10 PT 12.2 Seconds (9.8-13.1) 06/11/17 05:10 INR 1.1 (0.9-1.2) 06/11/17 05:10 APTT 27.6 Seconds (25.6-37.1) 06/08/17 01:50 - Constitutional Appears: Well - Head Exam Head Exam: ATRAUMATIC, NORMAL INSPECTION, NORMOCEPHALIC - Eye Exam Eye Exam: EOMI, Normal appearance, PERRL Pupil Exam: NORMAL ACCOMODATION, PERRL - ENT Exam ENT Exam: Mucous Membranes Moist, Normal Exam - Neck Exam Neck Exam: Full ROM, Normal Inspection. absent: Lymphadenopathy - Respiratory Exam Respiratory Exam: Clear to Ausculation Bilateral, Rales, NORMAL BREATHING PATTERN - Cardiovascular Exam Cardiovascular Exam: REGULAR RHYTHM, +S1, +S2, Murmur - GI/Abdominal Exam GI & Abdominal Exam: Soft, Normal Bowel Sounds. absent: Tenderness - Extremities Exam Extremities Exam: Full ROM, Normal Capillary Refill, Normal Inspection. absent : Joint Swelling, Pedal Edema - Back Exam Back Exam: NORMAL INSPECTION - Neurological Exam Neurological Exam: Alert, Awake, CN II-XII Intact, Oriented x3 - Psychiatric Exam Psychiatric exam: Normal Affect, Normal Mood - Skin Skin Exam: Dry, Intact, Normal Color, Warm Assessment and Plan (1) Mitral valve replaced Assessment & Plan: SHAWNA Status: Acute (2) Chest pain Status: Acute (3) Congestive heart failure Assessment & Plan: cont coreg, lisinopril cont lasix Status: Acute (4) Cardiac arrhythmia Status: Acute (5) Dyspnea Status: Acute
--- NOTE | 2017-06-13 00:14 | CP.PCM.PN ---
Subjective - Date & Time of Evaluation Date of Evaluation: 06/12/17 Time of Evaluation: 10:00 - Subjective Subjective: feeling fine consented for SHAWNA with no sedation Objective - Vital Signs/Intake and Output Vital Signs (last 24 hours): Temp Pulse Resp BP Pulse Ox 98.1 F 101 H 18 126/73 97 06/13/17 00:12 06/13/17 00:12 06/13/17 00:12 06/13/17 00:12 06/13/17 00:12 - Medications Medications: Current Medications Acetaminophen (Tylenol 325mg Tab) 650 mg PO Q6 PRN PRN Reason: mild pain 1-3 Last Admin: 06/10/17 04:29 Dose: 650 mg Albuterol/Ipratropium (Duoneb 3 Mg/0.5 Mg (3 Ml) Ud) 3 ml INH RQ6 DEL Last Admin: 06/12/17 20:03 Dose: 3 ml Albuterol/Ipratropium (Duoneb 3 Mg/0.5 Mg (3 Ml) Ud) 3 ml INH RQ6 PRN PRN Reason: Shortness of Breath Carvedilol (Coreg) 3.125 mg PO Q12 [facility] Last Admin: 06/12/17 21:46 Dose: 3.125 mg Diphenhydramine HCl (Benadryl) 25 mg PO Q6 PRN PRN Reason: Restlessness Enoxaparin Sodium (Lovenox) 80 mg SC Q12 DEL PRN Reason: Protocol Last Admin: 06/12/17 21:49 Dose: Not Given Ferrous Sulfate (Feosol) 325 mg PO BID [facility] Last Admin: 06/12/17 20:30 Dose: Not Given Furosemide (Lasix) 40 mg IVP DAILY [facility] Last Admin: 06/12/17 09:55 Dose: 40 mg Haloperidol Lactate (Haldol) 2 mg IM Q6 PRN PRN Reason: Agitation Lisinopril (Zestril) 10 mg PO DAILY [facility] Last Admin: 06/12/17 09:56 Dose: 10 mg Lorazepam (Ativan) 1 mg IM Q6 [facility] Last Admin: 06/12/17 21:49 Dose: Not Given Pantoprazole Sodium (Protonix Ec Tab) 40 mg PO DAILY [facility] Last Admin: 06/12/17 09:55 Dose: 40 mg - Labs Labs: 06/10/17 11:10 06/10/17 11:10 PT 12.2 Seconds (9.8-13.1) 06/11/17 05:10 INR 1.1 (0.9-1.2) 06/11/17 05:10 APTT 27.6 Seconds (25.6-37.1) 06/08/17 01:50 - Constitutional Appears: Well - Head Exam Head Exam: ATRAUMATIC, NORMAL INSPECTION, NORMOCEPHALIC - Eye Exam Eye Exam: EOMI, Normal appearance, PERRL Pupil Exam: NORMAL ACCOMODATION, PERRL - ENT Exam ENT Exam: Mucous Membranes Moist, Normal Exam - Neck Exam Neck Exam: Full ROM, Normal Inspection. absent: Lymphadenopathy - Respiratory Exam Respiratory Exam: Clear to Ausculation Bilateral, NORMAL BREATHING PATTERN - Cardiovascular Exam Cardiovascular Exam: REGULAR RHYTHM, +S1, +S2. absent: Murmur - GI/Abdominal Exam GI & Abdominal Exam: Soft, Normal Bowel Sounds. absent: Tenderness - Extremities Exam Extremities Exam: Full ROM, Normal Capillary Refill, Normal Inspection. absent : Joint Swelling, Pedal Edema - Back Exam Back Exam: NORMAL INSPECTION - Neurological Exam Neurological Exam: Alert, Awake, CN II-XII Intact, Normal Gait, Oriented x3 - Psychiatric Exam Psychiatric exam: Normal Affect, Normal Mood - Skin Skin Exam: Dry, Intact, Normal Color, Warm Assessment and Plan (1) Mitral valve replaced Assessment & Plan: Npo p mn SHAWNA in am Status: Acute (2) Chest pain Status: Acute (3) Congestive heart failure Status: Acute (4) Cardiac arrhythmia Status: Acute (5) Dyspnea Status: Acute
[2017-06-13] MEDS: Albuterol-Ipratrop 3 mg / 0.5 (3 ml) UD INH SCH ×3 (01:04→13:24)
[2017-06-13 01:06] LABS: SQUAMOUS EPITHIAL 1 /hpf (0-5); URINE BACTERIA RARE (<OCC); URINE BILIRUBIN NEGATIVE (NEGATIVE); URINE BLOOD SMALL (NEGATIVE); URINE CLARITY SLIGHTY-CLOUDY (Clear); URINE COLOR YELLOW (YELLOW); URINE GLUCOSE (UA) NEG (Normal); URINE LEUKOCYTE ESTERASE NEG Leu/uL (Negative); URINE NITRATE NEGATIVE (NEGATIVE); URINE PROTEIN NEGATIVE (NEGATIVE); URINE UROBILINOGEN 0.2-1.0 mg/dL (0.2-1.0)
[2017-06-13 01:20] LABS: BARBITURATES, UR NEGATIVE (NEGATIVE); BENZODIAZEPINES, UR NEGATIVE (NEGATIVE); OPIATES, UR NEGATIVE (NEGATIVE); PHENCYCLIDINE, UR NEGATIVE (NEGATIVE)
[2017-06-13 08:25] VITALS: O2SAT 99
[2017-06-13] MEDS: Pantoprazole 40 mg EC Tab PO SCH (10:00)
--- NOTE | 2017-06-13 13:53 | CP.PCM.CON ---
History of Present Illness - History of Present Illness History of Present Illness: received a call from Dr Amos health care assistant/ director of [facility] reporting that they may not screen the pt as they request that the competency of the pt to be assessed prior to her screening Explained that the competency would be a Cras decision , in reference to capacity of the pt I explained that as I noted in my previous consult note, that the pt does not have the capacity to make decision in the area of insight into her need to be compliant with her medications and her inability to verbalize and appreciate the risk of not taking her medications which with the valve replacement could put her at risk of developing an embolus or possible stroke, pt when asked about the risk of not taking medications, she stated there is no risk and she can replace her comudin with holistic medicine and going to hoahaoism pt also currently homeless , living in a car, not attending to her medical needs pt at current mental status presenting with a labile mood and affect and it is in my clinical opinion it is in the context of her current manic mental status and lack of insight into her illness she is considered risk to self with possible risk on discharge of medical and psychiatric complications It is my clinical opinion that pt needs to screened for involuntary admission for medication stabilization Past Patient History - Past Medical History & Family History Past Medical History?: Yes - Past Social History Alcohol: None Drugs: Denies - CARDIAC Hx Cardia Arrhythmia: Yes Hx Hypertension: Yes - PULMONARY Hx Respiratory Disorders: No - NEUROLOGICAL Hx Neurological Disorder: No - HEENT Hx HEENT Problems: No - RENAL Hx Chronic Kidney Disease: No - ENDOCRINE/METABOLIC Hx Endocrine Disorders: No - HEMATOLOGICAL/ONCOLOGICAL Hx Blood Disorders: No Hx AIDS: No Hx Human Immunodeficiency Virus (HIV): No - INTEGUMENTARY Hx Dermatological Problems: No - MUSCULOSKELETAL/RHEUMATOLOGICAL Hx Musculoskeletal Disorders: No Hx Falls: No - GASTROINTESTINAL Hx Gastrointestinal Disorders: No - GENITOURINARY/GYNECOLOGICAL Hx Genitourinary Disorders: No - PSYCHIATRIC Hx Psychophysiologic Disorder: No Hx Substance Use: No - SURGICAL HISTORY Hx Surgeries: Yes Hx Open Heart Surgery: Yes - ANESTHESIA Hx Anesthesia: Yes Hx Anesthesia Reactions: No Hx Malignant Hyperthermia: No Has any member of the family had a problem w/ anesthesia?: No Meds Allergies/Adverse Reactions: Allergies Allergy/AdvReac Type Severity Reaction Status Date / Time No Known Allergies Allergy Verified 06/08/17 02:13 - Medications Medications: Current Medications Acetaminophen (Tylenol 325mg Tab) 650 mg PO Q6 PRN PRN Reason: mild pain 1-3 Last Admin: 06/10/17 04:29 Dose: 650 mg Albuterol/Ipratropium (Duoneb 3 Mg/0.5 Mg (3 Ml) Ud) 3 ml INH RQ6 [facility] Last Admin: 06/13/17 13:24 Dose: Not Given Albuterol/Ipratropium (Duoneb 3 Mg/0.5 Mg (3 Ml) Ud) 3 ml INH RQ6 PRN PRN Reason: Shortness of Breath Carvedilol (Coreg) 3.125 mg PO Q12 [facility] Last Admin: 06/13/17 10:00 Dose: Not Given Diphenhydramine HCl (Benadryl) 25 mg PO Q6 PRN PRN Reason: Restlessness Enoxaparin Sodium (Lovenox) 80 mg SC Q12 [facility] PRN Reason: Protocol Last Admin: 06/12/17 21:49 Dose: Not Given Ferrous Sulfate (Feosol) 325 mg PO BID [facility] Last Admin: 06/13/17 10:00 Dose: Not Given Furosemide (Lasix) 40 mg IVP DAILY [facility] Last Admin: 06/13/17 10:00 Dose: Not Given Haloperidol Lactate (Haldol) 2 mg IM Q6 PRN PRN Reason: Agitation Lisinopril (Zestril) 10 mg PO DAILY [facility] Last Admin: 06/13/17 10:00 Dose: Not Given Lorazepam (Ativan) 1 mg IM Q6 [facility] Last Admin: 06/13/17 10:00 Dose: Not Given Pantoprazole Sodium (Protonix Ec Tab) 40 mg PO DAILY [facility] Last Admin: 06/13/17 10:00 Dose: Not Given Results - Vital Signs Recent Vital Signs: Last Vital Signs Temp 97.5 F L 06/13/17 08:00 Pulse 87 06/13/17 08:00 Resp 20 06/13/17 08:00 BP 110/67 06/13/17 08:00 Pulse Ox 99 06/13/17 08:00 - Labs Result Diagrams: 06/10/17 11:10 06/10/17 11:10 Labs: Laboratory Results - last 24 hr 06/12/17 06/12/17 06/12/17 18:59 18:59 20:30 Urine Color Yellow Urine Clarity Slighty-cloudy Urine pH 6.0 Ur Specific [place] 1.014 Urine Protein Negative Urine Glucose (UA) Neg Urine Ketones Negative Urine Blood Small Urine Nitrate Negative Urine Bilirubin Negative Urine Urobilinogen 0.2-1.0 Ur Leukocyte Esterase Neg Urine RBC (Auto) 2 Urine Microscopic WBC 3 Ur Squamous Epith Cells 1 Urine Bacteria Rare Hyaline Casts 6-10 H Urine Opiates Screen Negative Urine Methadone Screen Negative Ur Barbiturates Screen Negative Ur Phencyclidine Scrn Negative Ur Amphetamines Screen Negative U Benzodiazepines Scrn Negative U Oth Cocaine Metabols Negative U Cannabinoids Screen Negative Alcohol, Quantitative < 10
[2017-06-13 14:14] VITALS: PULSE 101
--- NOTE | 2017-06-13 15:37 | CP.PCM.PN ---
Subjective - Date & Time of Evaluation Date of Evaluation: 06/13/17 Time of Evaluation: 10:00 - Subjective Subjective: Patient refusing examination. On 1:1 watch now Transesophageal echocardiogram canceled due to patient refusing Objective - Vital Signs/Intake and Output Vital Signs (last 24 hours): Temp Pulse Resp BP Pulse Ox 97.7 F 101 H 20 145/72 99 06/13/17 13:00 06/13/17 13:00 06/13/17 13:00 06/13/17 13:00 06/13/17 13:00 - Medications Medications: Current Medications Acetaminophen (Tylenol 325mg Tab) 650 mg PO Q6 PRN PRN Reason: mild pain 1-3 Last Admin: 06/10/17 04:29 Dose: 650 mg Albuterol/Ipratropium (Duoneb 3 Mg/0.5 Mg (3 Ml) Ud) 3 ml INH RQ6 DEL Last Admin: 06/13/17 13:24 Dose: Not Given Albuterol/Ipratropium (Duoneb 3 Mg/0.5 Mg (3 Ml) Ud) 3 ml INH RQ6 PRN PRN Reason: Shortness of Breath Carvedilol (Coreg) 3.125 mg PO Q12 [facility] Last Admin: 06/13/17 10:00 Dose: Not Given Diphenhydramine HCl (Benadryl) 25 mg PO Q6 PRN PRN Reason: Restlessness Enoxaparin Sodium (Lovenox) 80 mg SC Q12 DEL PRN Reason: Protocol Last Admin: 06/12/17 21:49 Dose: Not Given Ferrous Sulfate (Feosol) 325 mg PO BID [facility] Last Admin: 06/13/17 10:00 Dose: Not Given Furosemide (Lasix) 40 mg IVP DAILY [facility] Last Admin: 06/13/17 10:00 Dose: Not Given Haloperidol Lactate (Haldol) 2 mg IM Q6 PRN PRN Reason: Agitation Lisinopril (Zestril) 10 mg PO DAILY [facility] Last Admin: 06/13/17 10:00 Dose: Not Given Lorazepam (Ativan) 1 mg IM Q6 [facility] Last Admin: 06/13/17 10:00 Dose: Not Given Pantoprazole Sodium (Protonix Ec Tab) 40 mg PO DAILY [facility] Last Admin: 06/13/17 10:00 Dose: Not Given - Labs Labs: 06/10/17 11:10 06/10/17 11:10 PT 12.2 Seconds (9.8-13.1) 06/11/17 05:10 INR 1.1 (0.9-1.2) 06/11/17 05:10 APTT 27.6 Seconds (25.6-37.1) 06/08/17 01:50 - Additional Findings Additional findings: Patient refuses physical examination Assessment and Plan - Assessment and Plan (Free Text) Plan: This is a 66 year old female with past medical history of essential hypertension , MVR s/p prosthetic mitral valve, history of atiral fibrillation, who presented initially to the ED on 07/06/2016 complaining of chest pain, cough, palpitatons, and SOB. She admitted to not taking any of her medications over 2 months before admission including warfarin "due to it causing hallucinations" She was initially admitted by Dr. Amos. ACS was ruled out; however she was being treated for CHF. Dr. Street was consulted and there was initially plan for SHAWNA to be performed on ; however it was canceled due to patient refusal. Psychiatry was consulted on 06/12 due to hallucinations and was seen- patient was deemed to be incapable to make decisions to take care of herself at home. Documented psychiatric problems additionally as per Dr. Verdugo's note. Patient is now waiting for evaluation by [facility] involuntary psych. 1) CHF with history of MV heart disease, now with mechanical mitral valve - Admitted to telemetry floor - Dr. Street on consultation- as per discussion, patient not medically clear as - Refusing all labwork other than urinalysis/utox requested by [facility] - Refusing all medications - Refusing transesophageal echocardiogram 2) Episode of complete heart block for 1 minutes on 06/08 - Holding metoprolol as per recs - Dr. Street on consultation 3) Patient acutely manic, [facility] called 06/12/2017, patient incapable of making decisions for herself regarding her healthcare as per psychiatry - As per Dr. Verdugo: " pt at current mental status presenting with a labile mood and affect and it is in my clinical opinion it is in the context of her current manic mental status and lack of insight into her illness she is considered risk to self with possible risk on discharge of medical and psychiatric complications It is my clinical opinion that pt needs to screened for involuntary admission for medication stabilization" - Patient therefore not psychiatrically clear to make her own decisions at this point as per psychiatry
[2017-06-13 15:56] VITALS: BP 143/91; RESP 16; TEMP 97.8
--- NOTE | 2017-06-13 18:04 | CP.PCM.CON ---
History of Present Illness - History of Present Illness History of Present Illness: called to do a 2nd opinion to evaluate this 66 year old female who has h/o valvular heart disease s/p valve replacement and with proshetic valve admitted for c/o chest pain and psych consult was requested intially because has stopped taking her meds for her medical condition and dr garcia evaluated the pt and found her grandiose and delusional and voluntary admission was recommended and pt refused it and screening by [facility] was requested and pt got upset and angry and demanding to be d/c as she told me that she came here for medical treatment and offended to be seen by psychiatrist and has agreed to TE echo with dr shirley but apparently due to pt referral to [facility] TE was cancelled and pt wanted to leave and 2nd opinion for psychiatry was requested. 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 and it is fact and she has atleast 2 published boooks.pt denies any past psychiatric treatment.pt says that she stopped only the meds which were giving her side effects and she still takes all other meds including coreg and lisinopril and she has used holistic treatment in addition to allopathic treatment .pt has daughter but she wont allow me to call her as she is not on good terms with her and she lives by herself.pt is somewhat elated in her mood and some lability in mood noted but she is not ehibiting any overt delusions and hallucinations now .pt has intact cognition and pt wants to pursue outpt treatment and will schedule TE echo in outpt and will continue to take all her meds and says that if she develops chest pain she would come to the hospital .pt denies suicidal ideation and homicidal ideation. Past Patient History - Past Medical History & Family History Past Medical History?: Yes - Past Social History Alcohol: None Drugs: Denies - CARDIAC Hx Cardia Arrhythmia: Yes Hx Hypertension: Yes - PULMONARY Hx Respiratory Disorders: No - NEUROLOGICAL Hx Neurological Disorder: No - HEENT Hx HEENT Problems: No - RENAL Hx Chronic Kidney Disease: No - ENDOCRINE/METABOLIC Hx Endocrine Disorders: No - HEMATOLOGICAL/ONCOLOGICAL Hx Blood Disorders: No Hx AIDS: No Hx Human Immunodeficiency Virus (HIV): No - INTEGUMENTARY Hx Dermatological Problems: No - MUSCULOSKELETAL/RHEUMATOLOGICAL Hx Musculoskeletal Disorders: No Hx Falls: No - GASTROINTESTINAL Hx Gastrointestinal Disorders: No - GENITOURINARY/GYNECOLOGICAL Hx Genitourinary Disorders: No - PSYCHIATRIC Hx Psychophysiologic Disorder: No Hx Substance Use: No - SURGICAL HISTORY Hx Surgeries: Yes Hx Open Heart Surgery: Yes - ANESTHESIA Hx Anesthesia: Yes Hx Anesthesia Reactions: No Hx Malignant Hyperthermia: No Has any member of the family had a problem w/ anesthesia?: No Meds Allergies/Adverse Reactions: Allergies Allergy/AdvReac Type Severity Reaction Status Date / Time No Known Allergies Allergy Verified 06/08/17 02:13 - Medications Medications: Current Medications Acetaminophen (Tylenol 325mg Tab) 650 mg PO Q6 PRN PRN Reason: mild pain 1-3 Last Admin: 06/10/17 04:29 Dose: 650 mg Albuterol/Ipratropium (Duoneb 3 Mg/0.5 Mg (3 Ml) Ud) 3 ml INH RQ6 [facility] Last Admin: 06/13/17 13:24 Dose: Not Given Albuterol/Ipratropium (Duoneb 3 Mg/0.5 Mg (3 Ml) Ud) 3 ml INH RQ6 PRN PRN Reason: Shortness of Breath Carvedilol (Coreg) 3.125 mg PO Q12 [facility] Last Admin: 06/13/17 10:00 Dose: Not Given Diphenhydramine HCl (Benadryl) 25 mg PO Q6 PRN PRN Reason: Restlessness Enoxaparin Sodium (Lovenox) 80 mg SC Q12 DEL PRN Reason: Protocol Last Admin: 06/12/17 21:49 Dose: Not Given Ferrous Sulfate (Feosol) 325 mg PO BID [facility] Last Admin: 06/13/17 10:00 Dose: Not Given Furosemide (Lasix) 40 mg IVP DAILY [facility] Last Admin: 06/13/17 10:00 Dose: Not Given Haloperidol Lactate (Haldol) 2 mg IM Q6 PRN PRN Reason: Agitation Lisinopril (Zestril) 10 mg PO DAILY [facility] Last Admin: 06/13/17 10:00 Dose: Not Given Lorazepam (Ativan) 1 mg IM Q6 [facility] Last Admin: 06/13/17 10:00 Dose: Not Given Pantoprazole Sodium (Protonix Ec Tab) 40 mg PO DAILY [facility] Last Admin: 06/13/17 10:00 Dose: Not Given Physical Exam - ENT Exam ENT Exam: Normal Exam - Psychiatric Exam Additional comments: pt is calm ,cooperative and pleasant .pt is alert oriented x3 with intact memory for long and short term .concentration is mildly impaired .speech somewhat pressured but can be engaged in interview.no flight of ideation .mood is pleasant at times little elated 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 Results - Vital Signs Recent Vital Signs: Last Vital Signs Temp 97.8 F 06/13/17 15:56 Pulse 101 H 06/13/17 15:56 Resp 16 06/13/17 15:56 BP 143/91 H 06/13/17 15:56 Pulse Ox 99 06/13/17 15:56 - Labs Result Diagrams: 06/10/17 11:10 06/10/17 11:10 Labs: Laboratory Results - last 24 hr 06/12/17 06/12/17 06/12/17 18:59 18:59 20:30 Urine Color Yellow Urine Clarity Slighty-cloudy Urine pH 6.0 Ur Specific [place] 1.014 Urine Protein Negative Urine Glucose (UA) Neg Urine Ketones Negative Urine Blood Small Urine Nitrate Negative Urine Bilirubin Negative Urine Urobilinogen 0.2-1.0 Ur Leukocyte Esterase Neg Urine RBC (Auto) 2 Urine Microscopic WBC 3 Ur Squamous Epith Cells 1 Urine Bacteria Rare Hyaline Casts 6-10 H Urine Opiates Screen Negative Urine Methadone Screen Negative Ur Barbiturates Screen Negative Ur Phencyclidine Scrn Negative Ur Amphetamines Screen Negative U Benzodiazepines Scrn Negative U Oth Cocaine Metabols Negative U Cannabinoids Screen Negative Alcohol, Quantitative < 10 Assessment & Plan - Assessment and Plan (Free Text) Assessment: 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 r/o bipolar disorder 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 Plan: I offered pt voluntary inpt psychiatric admission and pt refuses and agrees to go for outpt counselling if she need it and pt agreeable to follow up with dr shirley for outpt echo and see her medical doctor for follow up .pt is not commitable at this time and pt at this time competent to make decision for her medical and can be d/c against medical advice and i explained to pt all medical risks of AMA d/c including complication from heart condition including and psychiatric complications like psychotic break and benefits of staying anc pt understood it all and accepts liability for any adverse incident and health complication medical and psychiatric because of AMA discharge .
--- NOTE | 2017-06-13 20:44 | CP.PCM.PN ---
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 [facility] and got all her prior records and history hx of MVR x 2 at [facility] Last echo showed EF was 35% Objective - Vital Signs/Intake and Output Vital Signs (last 24 hours): Temp Pulse Resp BP Pulse Ox 97.8 F 101 H 16 143/91 H 99 06/13/17 15:56 06/13/17 15:56 06/13/17 15:56 06/13/17 15:56 06/13/17 15:56 - Labs Labs: 06/10/17 11:10 06/10/17 11:10 PT 12.2 Seconds (9.8-13.1) 06/11/17 05:10 INR 1.1 (0.9-1.2) 06/11/17 05:10 APTT 27.6 Seconds (25.6-37.1) 06/08/17 01:50 - Constitutional Appears: Well - Head Exam Head Exam: ATRAUMATIC, NORMAL INSPECTION, NORMOCEPHALIC - Eye Exam Eye Exam: EOMI, Normal appearance, PERRL Pupil Exam: NORMAL ACCOMODATION, PERRL - ENT Exam ENT Exam: Mucous Membranes Moist, Normal Exam - Neck Exam Neck Exam: Full ROM, Normal Inspection. absent: Lymphadenopathy - Respiratory Exam Respiratory Exam: Clear to Ausculation Bilateral, NORMAL BREATHING PATTERN - Cardiovascular Exam Cardiovascular Exam: REGULAR RHYTHM, +S1, +S2, Murmur - GI/Abdominal Exam GI & Abdominal Exam: Soft, Normal Bowel Sounds. absent: Tenderness - Extremities Exam Extremities Exam: Full ROM, Normal Capillary Refill, Normal Inspection. absent : Joint Swelling, Pedal Edema - Back Exam Back Exam: NORMAL INSPECTION - Neurological Exam Neurological Exam: Alert, Awake, CN II-XII Intact, Oriented x3 - Psychiatric Exam Psychiatric exam: Normal Affect, Normal Mood - Skin Skin Exam: Dry, Intact, Normal Color, Warm Assessment and Plan (1) Mitral valve replaced Assessment & Plan: pt wants SHAWNA scheduled as outpt cont current cardiac meds Status: Acute (2) Chest pain Assessment & Plan: last cardiac cath done showed normal coronaries Status: Acute (3) Congestive heart failure Assessment & Plan: cont lasix, bb, acei Status: Acute (4) Cardiac arrhythmia Status: Acute (5) Dyspnea Status: Acute
== END 2017-06-13 18:24 | disposition left against medical advice (07) | DRG 308 ==
LOC: H.ER 23:05 → H.ERHOLD 06-08 01:17 → OBSVTOIN 06-08 01:17 → H.TEL 06-08 03:30
PROVIDERS: ADMIT Internal Medicine; ATTEND Internal Medicine
DX: I44.2 Atrioventricular block, complete (principal); I50.41 Acute combined systolic (congestive) and diastolic (congestive) heart failure; I11.0 Hypertensive heart disease with heart failure; Z95.2 Presence of prosthetic heart valve; I48.91 Unspecified atrial fibrillation; J45.20 Mild intermittent asthma, uncomplicated; F43.25 Adjustment disorder with mixed disturbance of emotions and conduct; F31.9 Bipolar disorder, unspecified; J40 Bronchitis, not specified as acute or chronic; I25.10 Atherosclerotic heart disease of native coronary artery without angina pectoris; Z53.20 Procedure and treatment not carried out because of patient's decision for unspecified reasons; Z79.01 Long term (current) use of anticoagulants; Z59.0 Homelessness